=== PATIENT | female | born 1990 | race Caucasian/White ===

== ENCOUNTER 2019-10-19 04:58 | Emergency (ER) | payer MEDICAID ==
[~2019-10-19] VITALS: Ht 157.5 cm; Wt 59.0 kg
[2019-10-19] MEDS ORDERED: TETANUS, DIPHTHERIA, PERTUSSIS VAC/PF 0.5ML (>7YR OLD) IM ONE (06:30)
[2019-10-19 09:35] VITALS: BP 102/64
== END 2019-10-19 09:52 | disposition home or self-care (01) ==
LOC: ER 04:58
DX: R55 Syncope and collapse (principal); F17.290 Nicotine dependence, other tobacco product, uncomplicated; F12.10 Cannabis abuse, uncomplicated
CPT/HCPCS: 70450; 70490; 71045; 81025; 90471; 90715; 99284; Z7610